=== PATIENT | female | born 1945 | race Caucasian/White ===

== ENCOUNTER → 2017-07-16 | Day surgery (SDC) | payer MEDICARE, BC ==
[~2017-07-16] MED LIST: ASPI-482 PO; ATOR10TA60 PO; IV RINGERS,LACTATED 1000ML 1,000 ML IV SCH; LIDOCAINE 1% 1 ML SYRINGE. ID PRN; MIDAZOLAM HCL/PF 2 MG/2 ML VIAL. IV PRN; MINO100T2 PO; OMEG1CAP38 PO; PHEN37.53 PO; PROPOFOL 20 ML IV ONE; fentaNYL PF VIAL 100 MCG/2 ML VIAL IV PRN
[2017-07-16 13:20] VITALS: BP 132/79
== END | disposition home or self-care (01) ==
LOC: ENDOS 10:58
PROVIDERS: ATTEND Internal Medicine Gastroenterology
DX: K64.0 First degree hemorrhoids (principal); K57.30 Diverticulosis of large intestine without perforation or abscess without bleeding; E78.00 Pure hypercholesterolemia, unspecified; Z87.39 Personal history of other diseases of the musculoskeletal system and connective tissue
CPT/HCPCS: 45378; J2704